=== PATIENT | female | born 1995 | race African-American/Black ===

== ENCOUNTER 2016-10-19 19:38 | Emergency (ER) | payer SELFPAY ==
[~2016-10-19] VITALS: Ht 160 cm; Wt 72.0 kg
[~2016-10-19 19:38] MED LIST: DEPA250T PO; ERYT.5%O EACH EYE; REME15TA PO; SERT100 PO
[2016-10-19 19:39] VITALS: BP 127/72; PULSE 98; RESP 16; TEMP 98; O2SAT 97
--- NOTE | 2016-10-19 20:32 | PD ---
HPI Chief Complaint: Back/ Neck Pain or Injury Time Seen by Provider: 20:29 Travel History International Travel<30 days: No Contact w/Intl Traveler<30days: No Traveled to known affect area: No History of Present Illness HPI 21-year-old black female presents to emergency department with right lower back pain for the last 2 days. She denies any trauma. She states the pain is worse when she bends and moves. She does note that she has been urinating quite frequently and has had increased urgency. Mild dysuria. No vaginal complaints. No fever chills. PFSH Past Medical History Narrative Medical Ectopic , Gallstones, Bipolar Bipolar Disorder: Yes Depression: Yes Immunizations Current: Yes Tetanus Vaccination: < 5 Years : 4 Para: 1 Miscarriage: 3 Ectopic : Yes (tubal ) Past Surgical History Cholecystectomy: Yes Other Surgery: Yes (KELIOD SURG) Social History Alcohol Use: No Tobacco Use: No (2 weeks) Substance Use: No Allergies-Medications (Allergen,Severity, Reaction): Coded Allergies: Darvocet-N 100 (Verified Allergy, Unknown, 05/01/16) Reported Meds & Prescriptions Reported Meds & Active Scripts Active Ilotycin (Erythromycin) 3.5 Gm Oint 1 Dose EACH EYE QID Reported Depakote (Divalproex Sodium) 250 Mg Marcio Unknown Dose PO BID Zoloft (Sertraline HCl) 100 Mg Tab Unknown Dose PO HS Remeron 15 mg (Mirtazapine) 15 Mg Tab 1 Tab PO HS Review of Systems Except as stated in HPI: all other systems reviewed are Neg Physical Exam Narrative GENERAL: Well-developed, well-nourished in no acute distress. Nontoxic appearing. HEAD: Normocephalic, atraumatic. EYES: Pupils equal round and reactive. Extraocular motions intact. No scleral icterus. No injection or drainage. ENT: TMs clear without erythema. The external auditory canals clear. Nose: clear . Posterior pharynx is pink and moist. No tonsillar edema or exudate. Uvula midline. Airway patent. NECK: Trachea midline.Supple, nontender, moves head freely. No central bony tenderness or spasm. CARDIOVASCULAR: Regular rate and rhythm without murmurs, gallops, or rubs. RESPIRATORY: Clear to auscultation. Breath sounds equal bilaterally. No wheezes , rales, or rhonchi. GASTROINTESTINAL: Abdomen soft, non-tender, nondistended. No hepato-splenomegaly , or palpable masses. No guarding. EXTREMITIES: No clubbing, cyanosis, or edema. No joint tenderness, effusion, or edema noted. BACK: No central bony tenderness to palpation of dorsal lumbar spine. The patient does complain of right paralumbar tenderness. Decreased for flexion to 70. No saddle anesthesia. Without deformity or crepitance. No flank tenderness. Data Data Last Documented VS Vital Signs Date Time Temp Pulse Resp B/P Pulse Ox O2 Delivery O2 Flow Rate FiO2 10/19/16 19:39 98.0 98 16 127/72 97 Room Air Orders Urinalysis - C+S If Indicated (10/19/16 20:28) Naproxen (Naprosyn) (10/19/16 21:15) Cyclobenzaprine (Flexeril) (10/19/16 21:15) Labs Laboratory Tests Test 10/19/16 20:35 Urine Color YELLOW Urine Turbidity CLEAR Urine pH 5.5 Urine Specific [place] 1.019 Urine Protein NEG mg/dL Urine Glucose (UA) NEG mg/dL Urine Ketones 10 mg/dL Urine Occult Blood SMALL Urine Nitrite NEG Urine Bilirubin NEG Urine Urobilinogen LESS THAN 2.0 MG/DL Urine Leukocyte Esterase NEG Urine RBC 5 /hpf Urine WBC 1 /hpf Urine Squamous Epithelial 1 /hpf Cells Urine Mucus FEW /lpf Microscopic Urinalysis Comment CULT NOT INDICATED MDM Medical Decision Making Medical Screen Exam Complete: Yes Emergency Medical Condition: Yes Medical Record Reviewed: Yes Interpretation(s) Laboratory Tests Test 10/19/16 20:35 Urine Color YELLOW Urine Turbidity CLEAR Urine pH 5.5 Urine Specific [place] 1.019 Urine Protein NEG mg/dL Urine Glucose (UA) NEG mg/dL Urine Ketones 10 mg/dL Urine Occult Blood SMALL Urine Nitrite NEG Urine Bilirubin NEG Urine Urobilinogen LESS THAN 2.0 MG/DL Urine Leukocyte Esterase NEG Urine RBC 5 /hpf Urine WBC 1 /hpf Urine Squamous Epithelial 1 /hpf Cells Urine Mucus FEW /lpf Microscopic Urinalysis Comment CULT NOT INDICATED Differential Diagnosis MDM: High Differential diagnoses: AAA,Fracture, sprain, strain, HNP, nerve or vascular injury, epidural abscess, pilonidal cyst, pyelonephritis, UTI, nephrolithiasis, ureterolithiasis Narrative Course UA is negative. Patient is given Naprosyn 500 and Flexeril 10 mg by mouth. This is back pain Diagnosis Primary Impression: Acute back pain Qualified Code: M54.5 - Acute right-sided low back pain without sciatica Patient Instructions: General Instructions Departure Forms: Tests/Procedures, Work Release Special Instructions: No work 2 days. Additional Instructions: Rest. Ice for the next 3 days followed by heat . Robaxin and Voltaren. Follow-up with a primary care doctor in one week. Return to the ER for emergencies. Med/Other Pt SpecificInfo: Prescription(s) given Scripts Methocarbamol (Robaxin)500 Mg Tmc559 Mg PO QID #28 TAB Prov:Lexi Noel DO 10/19/[address] 50 Mg Tabdr50 Mg PO TID #21 TAB Prov:Lexi Noel DO 10/19/16 Disposition: 01 DISCHARGE HOME Condition: Stable Nicolas Whitehead Oct 19, 2016 20:32
[2016-10-19 20:58] LABS: BLOOD, URINE SMALL (NEG); GLUCOSE,URINE NEG (NEG); KETONE, URINE 10 mg/dL (NEG); MUCUS URINE FEW /lpf (OCC); NITRITE,URINE NEG (NEG); PH, URINE 5.5 (5.0-8.5); SQUAMOUS EPITHELIAL CELL URINE 1 /hpf (0-5); URINE COLOR YELLOW (YELLW/STRAW)
[2016-10-19 21:01] LABS: COMMENT (UR) CULT NOT INDICATED; CULTURE IF INDICATED CULT NOT INDICATED
[2016-10-19] MEDS ORDERED: DICL50TA3 PO (21:11)
[2016-10-19] MEDS ORDERED: ROBA500T PO (21:11)
[2016-10-19] MEDS ORDERED: CYCLOBENZAPRINE HCL 10 MG TAB PO ONE (21:15)
[2016-10-19] MEDS ORDERED: NAPROXEN 500 MG TAB PO ONE (21:15)
== END 2016-10-19 21:29 | disposition home or self-care (01) ==
LOC: NEPB 19:38
DX: M54.5 Low back pain (principal); R39.15 Urgency of urination; R35.0 Frequency of micturition; R30.0 Dysuria; Z87.891 Personal history of nicotine dependence
CPT/HCPCS: 81001; 99283

== ENCOUNTER 2017-05-31 11:14 | Emergency (ER) | payer OTHER ==
[~2017-05-31] VITALS: Ht 160 cm; Wt 70.0 kg
[~2017-05-31 11:14] MED LIST changes: +DICL50TA3 PO; +ROBA500T PO
[2017-05-31 11:16] VITALS: BP 124/67; PULSE 97; RESP 20; TEMP 98.5; O2SAT 100
[2017-05-31] MEDS ORDERED: PREN29TA PO (13:25)
--- NOTE | 2017-05-31 13:49 | PD ---
HPI Chief Complaint: Dizziness Time Seen by Provider: 13:33 Travel History International Travel<30 days: No Contact w/Intl Traveler<30days: No Traveled to known affect area: No History of Present Illness HPI 22yo F who is 11 weeks presents to the ED with c/o episode of lightheadedness. 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 She then sat down and put her head between her knees and then felt better. Denies any fever, chest pain, sob , n/v, abdominal pain, vaginal bleeding, focal weakness or numbness. PFSH Past Medical History Bipolar Disorder: Yes Depression: Yes Immunizations Current: Yes Tetanus Vaccination: < 5 Years ?: LMP: 03/15/17 : 4 Para: 1 Miscarriage: 3 Ectopic : Yes (tubal ) Past Surgical History Cholecystectomy: Yes Other Surgery: Yes (KELIOD SURG) Social History Alcohol Use: No Tobacco Use: No Substance Use: No Allergies-Medications (Allergen,Severity, Reaction): Coded Allergies: acetaminophen (Unverified Allergy, Unknown, 05/31/17) propoxyphene (Unverified Allergy, Unknown, 05/31/17) Reported Meds & Prescriptions Reported Meds & Active Scripts Active Reported Plus Iron 29-1 mg ( Vit-Iron Carbonyl) 29 Mg Iron-1 Mg Tab 1 Tab PO DAILY Review of Systems Except as stated in HPI: all other systems reviewed are Neg Physical Exam Narrative GENERAL: 22yo F not in distress. SKIN: Focused skin assessment warm/dry. HEAD: Atraumatic. Normocephalic. EYES: Pupils equal and round. No scleral icterus. No injection or drainage. ENT: No nasal bleeding or discharge. Mucous membranes pink and moist. NECK: Trachea midline. No JVD. CARDIOVASCULAR: Regular rate and rhythm. No murmur appreciated. RESPIRATORY: No accessory muscle use. Clear to auscultation. Breath sounds equal bilaterally. GASTROINTESTINAL: Abdomen soft, non-tender, nondistended. No rebound tenderness or guarding. MUSCULOSKELETAL: No obvious deformities. No clubbing. No cyanosis. No edema. NEUROLOGICAL: Awake and alert. No obvious cranial nerve deficits. Motor grossly within normal limits. Normal speech. PSYCHIATRIC: Appropriate mood and affect; insight and judgment normal. Data Data Last Documented VS Vital Signs Date Time Temp Pulse Resp B/P (MAP) Pulse Ox O2 Delivery O2 Flow Rate FiO2 05/31/17 16:03 78 20 118/68 (85) 99 05/31/17 11:16 98.5 Room Air Orders Orders Basic Metabolic Panel (Bmp) (05/31/17 13:43) Complete Blood Count With Diff (05/31/17 13:43) Ed Poc Ultrasound (05/31/17 ) Orthostatic Vital Signs (05/31/17 13:43) Blood Glucose (05/31/17 13:43) Urinalysis - C+S If Indicated (05/31/17 13:43) Ed Urine Pregnancytest Poc (05/31/17 13:43) Electrocardiogram (05/31/17 ) Labs Laboratory Tests Test 05/31/17 13:41 05/31/17 13:45 White Blood Count 7.0 TH/MM3 Red Blood Count 3.79 MIL/MM3 Hemoglobin 12.3 GM/DL Hematocrit 37.0 % Mean Corpuscular Volume 97.4 FL Mean Corpuscular Hemoglobin 32.5 PG Mean Corpuscular Hemoglobin Concent 33.4 % Red Cell Distribution Width 13.0 % Platelet Count 171 TH/MM3 Mean Platelet Volume 10.7 FL Neutrophils (%) (Auto) 54.4 % Lymphocytes (%) (Auto) 35.5 % Monocytes (%) (Auto) 7.6 % Eosinophils (%) (Auto) 2.1 % Basophils (%) (Auto) 0.4 % Neutrophils # (Auto) 3.8 TH/MM3 Lymphocytes # (Auto) 2.5 TH/MM3 Monocytes # (Auto) 0.5 TH/MM3 Eosinophils # (Auto) 0.1 TH/MM3 Basophils # (Auto) 0.0 TH/MM3 CBC Comment AUTO DIFF Differential Comment AUTO DIFF CONFIRMED Blood Urea Nitrogen 8 MG/DL Creatinine 0.35 MG/DL Random Glucose 76 MG/DL Calcium Level 8.9 MG/DL Sodium Level 133 MEQ/L Potassium Level 4.1 MEQ/L Chloride Level 103 MEQ/L Carbon Dioxide Level 24.1 MEQ/L Anion Gap 6 MEQ/L Estimat Glomerular Filtration Rate 279 ML/MIN Urine Color LIGHT-YELLOW Urine Turbidity CLEAR Urine pH 6.5 Urine Specific [place] 1.013 Urine Protein NEG mg/dL Urine Glucose (UA) NEG mg/dL Urine Ketones NEG mg/dL Urine Occult Blood NEG Urine Nitrite NEG Urine Bilirubin NEG Urine Urobilinogen LESS THAN 2.0 MG/DL Urine Leukocyte Esterase NEG Urine RBC LESS THAN 1 /hpf Urine WBC LESS THAN 1 /hpf Urine Squamous Epithelial Cells <1 /hpf Microscopic Urinalysis Comment CULT NOT INDICATED MDM Medical Decision Making Medical Screen Exam Complete: Yes Emergency Medical Condition: Yes Interpretation(s) EKG: NSR 69bpm. LAD. TWI III. No ST segment elevation or depression. Laboratory Tests Test 05/31/17 13:41 05/31/17 13:45 White Blood Count 7.0 TH/MM3 (4.0-11.0) Red Blood Count 3.79 MIL/MM3 (4.00-5.30) Hemoglobin 12.3 GM/DL (11.6-15.3) Hematocrit 37.0 % (35.0-46.0) Mean Corpuscular Volume 97.4 FL (80.0-100.0) Mean Corpuscular Hemoglobin 32.5 PG (27.0-34.0) Mean Corpuscular Hemoglobin Concent 33.4 % (32.0-36.0) Red Cell Distribution Width 13.0 % (11.6-17.2) Platelet Count 171 TH/MM3 (150-450) Mean Platelet Volume 10.7 FL (7.0-11.0) Neutrophils (%) (Auto) 54.4 % (16.0-70.0) Lymphocytes (%) (Auto) 35.5 % (9.0-44.0) Monocytes (%) (Auto) 7.6 % (0.0-8.0) Eosinophils (%) (Auto) 2.1 % (0.0-4.0) Basophils (%) (Auto) 0.4 % (0.0-2.0) Neutrophils # (Auto) 3.8 TH/MM3 (1.8-7.7) Lymphocytes # (Auto) 2.5 TH/MM3 (1.0-4.8) Monocytes # (Auto) 0.5 TH/MM3 (0-0.9) Eosinophils # (Auto) 0.1 TH/MM3 (0-0.4) Basophils # (Auto) 0.0 TH/MM3 (0-0.2) CBC Comment AUTO DIFF Differential Comment AUTO DIFF CONFIRMED Blood Urea Nitrogen 8 MG/DL (7-18) Creatinine 0.35 MG/DL (0.50-1.00) Random Glucose 76 MG/DL (74-106) Calcium Level 8.9 MG/DL (8.5-10.1) Sodium Level 133 MEQ/L (136-145) Potassium Level 4.1 MEQ/L (3.5-5.1) Chloride Level 103 MEQ/L (98-107) Carbon Dioxide Level 24.1 MEQ/L (21.0-32.0) Anion Gap 6 MEQ/L (5-15) Estimat Glomerular Filtration Rate 279 ML/MIN (>89) Urine Color LIGHT-YELLOW (YELLW/STRAW) Urine Turbidity CLEAR (CLEAR) Urine pH 6.5 (5.0-8.5) Urine Specific [place] 1.013 (1.002-1.035) Urine Protein NEG mg/dL (NEG-TRACE) Urine Glucose (UA) NEG mg/dL (NEG) Urine Ketones NEG mg/dL (NEG) Urine Occult Blood NEG (NEG) Urine Nitrite NEG (NEG) Urine Bilirubin NEG (NEG) Urine Urobilinogen LESS THAN 2.0 MG/DL (LESS Urine Leukocyte Esterase NEG (NEG) Urine RBC LESS THAN 1 /hpf (0-3) Urine WBC LESS THAN 1 /hpf (0-5) Urine Squamous Epithelial Cells <1 /hpf (0-5) Microscopic Urinalysis Comment CULT NOT INDICATED Differential Diagnosis Vasovagal vs. hypoglycemia vs. dehydration Narrative Course 22yo F here with episode of lightheadedness that improved after sitting down. Sounds like like vasovagal. Negative orthostatic. Labs reviewed, no leukocytosis. H/H normal. BMP unremarkable except mild hyponatremia at 133. UA negative. Denies any chest pain or sob. Saturating at 100% on RA. Bedside US showed +IUP with +FHR. Pt has been observed in the ED and said she is no longer dizzy. Feels much better. Return precautions given. Procedures Procedure Narrative Emergency Department Pelvic ultrasound was performed with patient consent. The curvilinear probe was used in the transverse and sagittal views within the suprapubic region revealing single intrauterine . heart rate was 160. Diagnosis Primary Impression: Lightheadedness Patient Instructions: General Instructions Departure Forms: Tests/Procedures Additional Instructions: Please follow up with your primary care physician in 3-7 days. Return to the ED if symptoms worsen. Med/Other Pt SpecificInfo: No Change to Meds Disposition: 01 DISCHARGE HOME Condition: Stable Lolis Carroll DO May 31, 2017 13:49
[2017-05-31 13:56] VITALS: BP_SYST 122; BP_SYST 126; BP_DIAS 65; BP_DIAS 70
[2017-05-31 14:03] LABS: BLOOD, URINE NEG (NEG); GLUCOSE,URINE NEG (NEG); KETONE, URINE NEG (NEG); NITRITE,URINE NEG (NEG); PH, URINE 6.5 (5.0-8.5); SQUAMOUS EPITHELIAL CELL URINE <1 /hpf (0-5); URINE COLOR LIGHT-YELLOW (YELLW/STRAW)
[2017-05-31 14:11] LABS: AUTOMATED NEUTROPHIL # 3.8 TH/MM3 (1.8-7.7); BASOPHIL % 0.4 % (0.0-2.0); EOSINOPHIL # 0.1 TH/MM3 (0-0.4); EOSINOPHIL % 2.1 % (0.0-4.0); LYMPH % 35.5 % (9.0-44.0); LYMPHOCYTE # 2.5 TH/MM3 (1.0-4.8); MEAN CELL VOLUME 97.4 FL (80.0-100.0); MEAN CORPUSCULAR HEMOGLOBIN 32.5 PG (27.0-34.0); MEAN CORPUSCULAR HGB CONC 33.4 % (32.0-36.0); MONO % 7.6 % (0.0-8.0); NEUT % 54.4 % (16.0-70.0); PLATELET COUNT 171 TH/MM3 (150-450); RED BLOOD COUNT 3.79 MIL/MM3 (4.00-5.30)
[2017-05-31 14:15] LABS: COMMENT (UR) CULT NOT INDICATED; CULTURE IF INDICATED CULT NOT INDICATED
[2017-05-31 14:21] LABS: BICARBONATE 24.1 MEQ/L (21.0-32.0); POTASSIUM 4.1 MEQ/L (3.5-5.1)
[2017-05-31 14:30] LABS: HEMO FLAGS AUTO DIFF
[2017-05-31 14:55] LABS: SCAN/DIFF AUTO DIFF CONFIRMED
[2017-05-31 16:03] VITALS: BP 118/68
--- NOTE | 2017-06-01 14:18 | EKG ---
Date Performed: 05/31/2017 Time Performed: 15:31:55 PTAGE: 22 years EKG: Sinus rhythm NORMAL ECG PREVIOUS TRACING : 05/31/2017 14.19 DOCTOR: Danny Harvey Interpretating Date/Time 06/02/2017 12:16:06
== END 2017-05-31 16:17 | disposition home or self-care (01) ==
LOC: NEPD 11:14
DX: R42 Dizziness and giddiness (principal)
CPT/HCPCS: 80048; 81001; 84703; 85025; 93005

== ENCOUNTER 2017-06-01 13:07 | Emergency (ER) | payer OTHER ==
[~2017-06-01] VITALS: Ht 160 cm; Wt 62.0 kg
[~2017-06-01 13:07] MED LIST changes: -DEPA250T PO; -DICL50TA3 PO; -ERYT.5%O EACH EYE; +PREN29TA PO; -REME15TA PO; -ROBA500T PO; -SERT100 PO
[2017-06-01 14:20] VITALS: BP 118/70; PULSE 88; RESP 19; TEMP 98; O2SAT 100
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
[2017-06-01] MEDS ORDERED: ACETAMINOPHEN 500 MG CPLT PO ONE ×2 (15:30)
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
== END 2017-06-01 16:58 | disposition home or self-care (01) ==
LOC: NEDAMB 13:07
DX: O99.89 Other specified diseases and conditions complicating pregnancy, childbirth and the puerperium (principal); S93.401A Sprain of unspecified ligament of right ankle, initial encounter; S16.1XXA Strain of muscle, fascia and tendon at neck level, initial encounter; Z86.59 Personal history of other mental and behavioral disorders; Z3A.11 11 weeks gestation of pregnancy; V89.2XXA Person injured in unspecified motor-vehicle accident, traffic, initial encounter
CPT/HCPCS: 73600; 99284